=== PATIENT | male | born 1945 | race Caucasian/White ===

== ENCOUNTER 2021-03-26 11:25 | Inpatient (IN) ==
[2021-03-26] MEDS ORDERED: oxyCODONE/Acetamin 5/325 mg TAB PO ONE (11:29)
[2021-03-26] MEDS ORDERED: Ondansetron 4 mg VIAL 2 MG/ML 2 ml VIAL IV PRN (12:18)
[2021-03-26] MEDS ORDERED: Morphine 4 MG/ML VIAL (1 ml) IV PRN ×2 (12:24→12:25)
[2021-03-26] MEDS ORDERED: Thiamine 100 MG/ML 2 ml VIAL (200 mg) IM ONE (12:50)
[2021-03-26] MEDS: Aspirin EC 81 mg TAB.EC (enteric coated) PO SCH (16:09)
[2021-03-26] MEDS: Multivitamins/Minerals TAB PO SCH (16:10)
[2021-03-26] MEDS: Heparin 5000 UNITS/ML 1 mL VIAL SUBCUT SCH ×2 (16:11→21:46)
[2021-03-26] MEDS ORDERED: NS 0.9% 1000 ml BAG 1,000 ML IV ONE (17:28)
[2021-03-26] MEDS: Mometasone/Formoter 200/5 MDI INH SCH (20:32)
[2021-03-26] MEDS ORDERED: Levalbuterol 1.25MG/0.5ML NEB.SOL INH PRN (22:01)
[2021-03-27 05:47] LABS: Activated Partial Thrombo Time 16.6 seconds (26.0-38.0); INR 0.93 (0.82-1.09)
[2021-03-27] MEDS ORDERED: Lactated Ringers 1000 ml BAG 1,000 ML IV SCH (06:00)
[2021-03-27] MEDS ORDERED: Buffered Lidocaine 1% SYRIN 1 ml INTRADERM ONE (06:00)
[2021-03-27 06:53] LABS: Urine Appearance Clear; Urine Bilirubin Negative (Negative); Urine Blood Negative (Negative); Urine Color Yellow; Urine Glucose Negative (Negative); Urine Ketones Negative (Negative); Urine Nitrite Negative (Negative); Urine Protein Negative (Negative); Urine Specific Gravity 1.012 (1.002-1.030); Urine Urobilinogen Negative (Negative)
[2021-03-27] MEDS: Mometasone/Formoter 200/5 MDI INH SCH ×2 (08:41→20:05)
[2021-03-27] MEDS: Multivitamins/Minerals TAB PO SCH (08:41)
[2021-03-27] MEDS: Aspirin EC 81 mg TAB.EC (enteric coated) PO SCH (08:42)
[2021-03-27] MEDS ORDERED: Pneumococcal Vac 23-Polyvalent IM ONE (09:00)
[2021-03-27 10:56] LABS: ABS Basophils 0.1 10^3/ul (0-0.2); ABS Lymphocytes 1.4 10^3/ul (1.0-4.8); ABS Monocytes 0.9 10^3/ul (0-0.8); Eosinophil % 0.2 %; Hematocrit 35 % (42-52); Hemoglobin 11.8 g/dL (14.0-18.0); Lymphocyte % 13.4 %; Mean Corpuscular HGB Conc 34 g/dL (31-36); Mean Corpuscular Hemoglobin 34 pg (27-31); Mean Corpuscular Volume 100 fL (80-94); Mean Platelet Volume 7.3 fL (7.4-10.4); Platelet Count 224 10^3/uL (150-450); Red Blood Count 3.46 10^6 /uL (4.18-5.48); Red Cell Distribution Width 13 % (10-15); White Blood Count 10.4 10^3/uL (3.5-10.8)
[2021-03-27 11:21] LABS: Albumin 3.2 g/dL (3.2-5.2); Albumin/Globulin Ratio 1.3 (1-3); Calcium 8.7 mg/dL (8.6-10.3); EGFR African American 119.8 (>60); Globulin 2.5 g/dL (2-4); Potassium 4.7 mmol/L (3.5-5.0); Total Bilirubin 0.3 mg/dL (0.2-1.0); Total Protein 5.7 g/dL (6.4-8.9)
[2021-03-27] MEDS ORDERED: Remdesivir 100 mg Vial 200 MG in NS 0.9% 250 ml 210 ML IV ONE (17:29)
[2021-03-27 18:47] LABS: INR 1.1 (0.82-1.09)
[2021-03-27 18:48] LABS: Albumin 3.1 g/dL (3.2-5.2); Albumin/Globulin Ratio 1.3 (1-3); Calcium 8.4 mg/dL (8.6-10.3); EGFR African American 156.8 (>60); EGFR Non-African American 129.6 (>60); Globulin 2.3 g/dL (2-4); Potassium 4.7 mmol/L (3.5-5.0); Total Bilirubin 0.3 mg/dL (0.2-1.0); Total Protein 5.4 g/dL (6.4-8.9)
[2021-03-28] MEDS: Mometasone/Formoter 200/5 MDI INH SCH ×2 (07:25→20:43)
[2021-03-28] MEDS: Multivitamins/Minerals TAB PO SCH (08:53)
[2021-03-28] MEDS: Aspirin EC 81 mg TAB.EC (enteric coated) PO SCH (08:53)
[2021-03-28 09:55] LABS: ABS Basophils 0.1 10^3/ul (0-0.2); ABS Lymphocytes 0.8 10^3/ul (1.0-4.8); ABS Monocytes 0.9 10^3/ul (0-0.8); ABS Neutrophils 12.2 10^3/ul (1.5-7.7); Hematocrit 32 % (42-52); Hemoglobin 11.1 g/dL (14.0-18.0); Lymphocyte % 5.5 %; Mean Corpuscular HGB Conc 34 g/dL (31-36); Mean Corpuscular Hemoglobin 34 pg (27-31); Mean Corpuscular Volume 99 fL (80-94); Mean Platelet Volume 7.5 fL (7.4-10.4); Platelet Count 240 10^3/uL (150-450); Red Blood Count 3.27 10^6 /uL (4.18-5.48); Red Cell Distribution Width 13 % (10-15); White Blood Count 13.9 10^3/uL (3.5-10.8)
[2021-03-28 10:03] LABS: INR 1.13 (0.82-1.09)
[2021-03-28 10:13] LABS: Albumin 3.3 g/dL (3.2-5.2); Albumin/Globulin Ratio 1.3 (1-3); Calcium 8.8 mg/dL (8.6-10.3); EGFR African American 176.7 (>60); Globulin 2.6 g/dL (2-4); Potassium 4.5 mmol/L (3.5-5.0); Total Bilirubin 0.3 mg/dL (0.2-1.0); Total Protein 5.9 g/dL (6.4-8.9)
[2021-03-28] MEDS: Lidocaine PATCH 5% PATCH TRANSDERM SCH (17:30)
[2021-03-28] MEDS: Remdesivir 100 mg Vial 100 MG in NS 0.9% 250 ml 230 ML IV SCH (20:46)
[2021-03-28] MEDS ORDERED: Lidocaine Patch REMOVE PATCH PATCH OFF SCH ×2 (21:00)
[2021-03-29] MEDS: Lidocaine Patch REMOVE PATCH PATCH OFF SCH (01:33)
[2021-03-29 07:00] LABS: ABS Lymphocytes 0.9 10^3/ul (1.0-4.8); ABS Neutrophils 11.9 10^3/ul (1.5-7.7); Hematocrit 31 % (42-52); Hemoglobin 10.7 g/dL (14.0-18.0); Lymphocyte % 6.7 %; Mean Corpuscular HGB Conc 34 g/dL (31-36); Mean Corpuscular Hemoglobin 34 pg (27-31); Mean Corpuscular Volume 99 fL (80-94); Mean Platelet Volume 7.3 fL (7.4-10.4); Platelet Count 252 10^3/uL (150-450); Red Blood Count 3.16 10^6 /uL (4.18-5.48); Red Cell Distribution Width 12 % (10-15); White Blood Count 13.9 10^3/uL (3.5-10.8)
[2021-03-29 07:16] LABS: Albumin 3.1 g/dL (3.2-5.2); Albumin/Globulin Ratio 1.1 (1-3); Calcium 8.8 mg/dL (8.6-10.3); EGFR African American 211.8 (>60); EGFR Non-African American 175.1 (>60); Globulin 2.8 g/dL (2-4); Potassium 4.4 mmol/L (3.5-5.0); Total Bilirubin 0.4 mg/dL (0.2-1.0); Total Protein 5.9 g/dL (6.4-8.9)
[2021-03-29 07:18] LABS: INR 1.11 (0.82-1.09)
[2021-03-29] MEDS: Mometasone/Formoter 200/5 MDI INH SCH ×2 (08:27→20:08)
[2021-03-29] MEDS: Aspirin EC 81 mg TAB.EC (enteric coated) PO SCH (10:03)
[2021-03-29] MEDS: Multivitamins/Minerals TAB PO SCH (10:03)
[2021-03-29] MEDS: Lidocaine PATCH 5% PATCH TRANSDERM SCH (10:04)
[2021-03-29] MEDS ORDERED: HYDROmorphone 1 MG/1 ML SYRINGE IV SLOW PU ONE (11:52)
[2021-03-29] MEDS: Remdesivir 100 mg Vial 100 MG in NS 0.9% 250 ml 230 ML IV SCH (21:03)
[2021-03-30] MEDS: Lidocaine Patch REMOVE PATCH PATCH OFF SCH ×2 (03:47→23:38)
[2021-03-30 07:59] LABS: INR 1.1 (0.82-1.09)
[2021-03-30] MEDS: Mometasone/Formoter 200/5 MDI INH SCH ×2 (08:00→20:18)
[2021-03-30 08:08] LABS: Albumin/Globulin Ratio 1.2 (1-3); Calcium 8.5 mg/dL (8.6-10.3); EGFR African American 217.1 (>60); EGFR Non-African American 179.5 (>60); Globulin 2.6 g/dL (2-4); Potassium 4.5 mmol/L (3.5-5.0); Total Bilirubin 0.4 mg/dL (0.2-1.0); Total Protein 5.6 g/dL (6.4-8.9)
[2021-03-30] MEDS: Aspirin EC 81 mg TAB.EC (enteric coated) PO SCH (09:02)
[2021-03-30] MEDS: Multivitamins/Minerals TAB PO SCH (09:03)
[2021-03-30] MEDS: HYDROmorphone 1 MG/1 ML SYRINGE IV SLOW PU PRN ×4 (09:09→22:12)
[2021-03-30] MEDS: Lidocaine PATCH 5% PATCH TRANSDERM SCH (09:14)
[2021-03-30] MEDS ORDERED: Senna TAB 8.6 mg TAB PO PRN (10:56)
[2021-03-30] MEDS ORDERED: Magnesium Hydroxide LIQ 30 ML UDC PO PRN (10:56)
[2021-03-30] MEDS: Enoxaparin 40 MG/0.4 ML SYR SUBCUT SCH (17:45)
[2021-03-30] MEDS: Polyethylene Glycol 3350 17 GM PACKET PO SCH (17:45)
[2021-03-30] MEDS: Remdesivir 100 mg Vial 100 MG in NS 0.9% 250 ml 230 ML IV SCH (22:54)
[2021-03-30] MEDS: Magnesium Hydroxide LIQ 30 ML UDC PO SCH (23:38)
[2021-03-31] MEDS: HYDROmorphone 1 MG/1 ML SYRINGE IV SLOW PU PRN ×5 (01:59→22:19)
[2021-03-31 05:22] LABS: ABS Lymphocytes 0.8 10^3/ul (1.0-4.8); ABS Monocytes 0.9 10^3/ul (0-0.8); ABS Neutrophils 8.6 10^3/ul (1.5-7.7); Hematocrit 31 % (42-52); Hemoglobin 10.6 g/dL (14.0-18.0); Lymphocyte % 7.6 %; Mean Corpuscular HGB Conc 34 g/dL (31-36); Mean Corpuscular Hemoglobin 34 pg (27-31); Mean Corpuscular Volume 100 fL (80-94); Mean Platelet Volume 7.3 fL (7.4-10.4); Platelet Count 308 10^3/uL (150-450); Red Blood Count 3.12 10^6 /uL (4.18-5.48); Red Cell Distribution Width 12 % (10-15); White Blood Count 10.3 10^3/uL (3.5-10.8)
[2021-03-31 05:30] LABS: INR 1.1 (0.82-1.09)
[2021-03-31 05:41] LABS: Albumin 2.7 g/dL (3.2-5.2); Albumin/Globulin Ratio 1.2 (1-3); Calcium 8.2 mg/dL (8.6-10.3); EGFR African American 206.7 (>60); EGFR Non-African American 170.9 (>60); Globulin 2.2 g/dL (2-4); Potassium 4.5 mmol/L (3.5-5.0); Total Bilirubin 0.3 mg/dL (0.2-1.0); Total Protein 4.9 g/dL (6.4-8.9)
[2021-03-31] MEDS: Polyethylene Glycol 3350 17 GM PACKET PO SCH (09:26)
[2021-03-31] MEDS: Magnesium Hydroxide LIQ 30 ML UDC PO SCH ×2 (09:26→23:04)
[2021-03-31] MEDS: Multivitamins/Minerals TAB PO SCH (09:27)
[2021-03-31] MEDS: Aspirin EC 81 mg TAB.EC (enteric coated) PO SCH (09:27)
[2021-03-31] MEDS: Lidocaine PATCH 5% PATCH TRANSDERM SCH (09:28)
[2021-03-31] MEDS: Mometasone/Formoter 200/5 MDI INH SCH ×2 (09:38→19:27)
[2021-03-31] MEDS: Enoxaparin 40 MG/0.4 ML SYR SUBCUT SCH (16:45)
[2021-03-31] MEDS: fentaNYL PATCH 12 MCG/HR 1 PATCH TRANSDERM SCH (22:21)
[2021-03-31] MEDS: Remdesivir 100 mg Vial 100 MG in NS 0.9% 250 ml 230 ML IV SCH (22:26)
[2021-03-31] MEDS: Lidocaine Patch REMOVE PATCH PATCH OFF SCH (23:59)
[2021-04-01] MEDS: HYDROmorphone 1 MG/1 ML SYRINGE IV SLOW PU PRN ×6 (02:11→23:06)
[2021-04-01 05:45] LABS: Urine Appearance Cloudy; Urine Bilirubin Negative (Negative); Urine Blood 3+ (Negative); Urine Color Yellow; Urine Glucose Negative (Negative); Urine Ketones Negative (Negative); Urine Nitrite Negative (Negative); Urine Protein Negative (Negative); Urine Specific Gravity 1.009 (1.002-1.030); Urine Urobilinogen Negative (Negative)
[2021-04-01 05:53] LABS: Urine Bacteria Absent (Absent); Urine Red Blood Cell 2+(6-10/hpf) (Absent); Urine White Blood Cell Trace(0-5/hpf) (Absent)
[2021-04-01 06:44] LABS: INR 1.11 (0.82-1.09)
[2021-04-01 06:52] LABS: Albumin 3.1 g/dL (3.2-5.2); Albumin/Globulin Ratio 1.1 (1-3); Calcium 8.6 mg/dL (8.6-10.3); Globulin 2.8 g/dL (2-4); Potassium 4.4 mmol/L (3.5-5.0); Total Bilirubin 0.4 mg/dL (0.2-1.0); Total Protein 5.9 g/dL (6.4-8.9)
[2021-04-01] MEDS: Mometasone/Formoter 200/5 MDI INH SCH ×2 (07:42→20:39)
[2021-04-01 07:52] LABS: ABS Lymphocytes 1.1 10^3/ul (1.0-4.8); ABS Monocytes 1.3 10^3/ul (0-0.8); ABS Neutrophils 9.7 10^3/ul (1.5-7.7); Hematocrit 34 % (42-52); Hemoglobin 11.6 g/dL (14.0-18.0); Lymphocyte % 8.8 %; Mean Corpuscular HGB Conc 34 g/dL (31-36); Mean Corpuscular Hemoglobin 34 pg (27-31); Mean Corpuscular Volume 99 fL (80-94); Mean Platelet Volume 7.8 fL (7.4-10.4); Platelet Count 351 10^3/uL (150-450); Red Blood Count 3.43 10^6 /uL (4.18-5.48); Red Cell Distribution Width 13 % (10-15)
[2021-04-01] MEDS: Aspirin EC 81 mg TAB.EC (enteric coated) PO SCH (08:32)
[2021-04-01] MEDS: Multivitamins/Minerals TAB PO SCH (08:32)
[2021-04-01] MEDS: fentaNYL Patch Check Q Shift NOTE FOLLOW UP SCH ×2 (08:33→19:29)
[2021-04-01] MEDS: Lidocaine PATCH 5% PATCH TRANSDERM SCH (08:34)
[2021-04-01] MEDS: Magnesium Hydroxide LIQ 30 ML UDC PO SCH ×3 (08:34→20:57)
[2021-04-01] MEDS: Polyethylene Glycol 3350 17 GM PACKET PO SCH (08:34)
[2021-04-01] MEDS: Enoxaparin 40 MG/0.4 ML SYR SUBCUT SCH (19:05)
[2021-04-01] MEDS ORDERED: Magnesium CITRATE LIQ 300 ML BTL PO ONE (19:17)
[2021-04-01] MEDS: Senna TAB 8.6 mg TAB PO SCH (20:56)
[2021-04-01] MEDS: Lidocaine Patch REMOVE PATCH PATCH OFF SCH (20:59)
[2021-04-01] MEDS: Remdesivir 100 mg Vial 100 MG in NS 0.9% 250 ml 230 ML IV SCH (20:59)
[2021-04-02] MEDS: HYDROmorphone 1 MG/1 ML SYRINGE IV SLOW PU PRN ×6 (03:08→23:50)
[2021-04-02] MEDS: fentaNYL Patch Check Q Shift NOTE FOLLOW UP SCH ×2 (07:27→19:36)
[2021-04-02 07:46] LABS: ABS Basophils 0.1 10^3/ul (0-0.2); ABS Lymphocytes 1.6 10^3/ul (1.0-4.8); ABS Monocytes 1.4 10^3/ul (0-0.8); ABS Neutrophils 14.7 10^3/ul (1.5-7.7); Hematocrit 33 % (42-52); Hemoglobin 11.2 g/dL (14.0-18.0); Lymphocyte % 8.9 %; Mean Corpuscular HGB Conc 34 g/dL (31-36); Mean Corpuscular Hemoglobin 34 pg (27-31); Mean Corpuscular Volume 100 fL (80-94); Mean Platelet Volume 7.5 fL (7.4-10.4); Platelet Count 362 10^3/uL (150-450); Red Blood Count 3.31 10^6 /uL (4.18-5.48); Red Cell Distribution Width 13 % (10-15); White Blood Count 17.8 10^3/uL (3.5-10.8)
[2021-04-02] MEDS: Mometasone/Formoter 200/5 MDI INH SCH ×2 (07:52→19:32)
[2021-04-02 08:05] LABS: Albumin 2.9 g/dL (3.2-5.2); Albumin/Globulin Ratio 1.2 (1-3); Calcium 8.2 mg/dL (8.6-10.3); EGFR African American 192.8 (>60); EGFR Non-African American 159.3 (>60); Globulin 2.4 g/dL (2-4); Potassium 4.6 mmol/L (3.5-5.0); Total Bilirubin 0.5 mg/dL (0.2-1.0); Total Protein 5.3 g/dL (6.4-8.9)
[2021-04-02] MEDS: Magnesium Hydroxide LIQ 30 ML UDC PO SCH ×2 (09:01→21:56)
[2021-04-02] MEDS: Al Hydrox/Mg Hydrox/Simet LIQ 30 ML UDC PO PRN ×2 (09:01→15:56)
[2021-04-02] MEDS: Lidocaine PATCH 5% PATCH TRANSDERM SCH (09:01)
[2021-04-02] MEDS: Multivitamins/Minerals TAB PO SCH (09:03)
[2021-04-02] MEDS: Aspirin EC 81 mg TAB.EC (enteric coated) PO SCH (09:03)
[2021-04-02] MEDS: Polyethylene Glycol 3350 17 GM PACKET PO SCH (09:04)
[2021-04-02] MEDS ORDERED: Albuterol HFA INHALER 8 gm MDI INH PRN (12:12)
[2021-04-02] MEDS: Enoxaparin 40 MG/0.4 ML SYR SUBCUT SCH (15:56)
[2021-04-02] MEDS: Senna TAB 8.6 mg TAB PO SCH (21:56)
[2021-04-02] MEDS: Lidocaine Patch REMOVE PATCH PATCH OFF SCH (21:57)
[2021-04-03] MEDS: HYDROmorphone 1 MG/1 ML SYRINGE IV SLOW PU PRN ×5 (04:04→21:45)
[2021-04-03] MEDS: fentaNYL Patch Check Q Shift NOTE FOLLOW UP SCH ×2 (06:56→19:18)
[2021-04-03] MEDS: Mometasone/Formoter 200/5 MDI INH SCH ×2 (08:07→19:26)
[2021-04-03] MEDS: Al Hydrox/Mg Hydrox/Simet LIQ 30 ML UDC PO PRN (08:35)
[2021-04-03] MEDS: Magnesium Hydroxide LIQ 30 ML UDC PO SCH ×2 (08:35→21:43)
[2021-04-03] MEDS: Polyethylene Glycol 3350 17 GM PACKET PO SCH (08:36)
[2021-04-03] MEDS: Lidocaine PATCH 5% PATCH TRANSDERM SCH (08:36)
[2021-04-03] MEDS: Multivitamins/Minerals TAB PO SCH (08:37)
[2021-04-03] MEDS: Aspirin EC 81 mg TAB.EC (enteric coated) PO SCH (08:37)
[2021-04-03 09:42] LABS: ABS Lymphocytes 1.4 10^3/ul (1.0-4.8); ABS Monocytes 0.8 10^3/ul (0-0.8); ABS Neutrophils 13.1 10^3/ul (1.5-7.7); Hematocrit 36 % (42-52); Hemoglobin 11.9 g/dL (14.0-18.0); Lymphocyte % 9.1 %; Mean Corpuscular HGB Conc 33 g/dL (31-36); Mean Corpuscular Hemoglobin 33 pg (27-31); Mean Corpuscular Volume 100 fL (80-94); Mean Platelet Volume 7.6 fL (7.4-10.4); Nucleated Red Blood Cells % 0.1; Platelet Count 384 10^3/uL (150-450); Red Blood Count 3.59 10^6 /uL (4.18-5.48); Red Cell Distribution Width 12 % (10-15); White Blood Count 15.4 10^3/uL (3.5-10.8)
[2021-04-03 10:01] LABS: Albumin 3.1 g/dL (3.2-5.2); Calcium 8.4 mg/dL (8.6-10.3); Potassium 4.1 mmol/L (3.5-5.0); Total Bilirubin 0.5 mg/dL (0.2-1.0)
[2021-04-03 10:07] LABS: Albumin/Globulin Ratio 1.2 (1-3); EGFR African American 184.4 (>60); EGFR Non-African American 152.4 (>60); Globulin 2.5 g/dL (2-4); Total Protein 5.6 g/dL (6.4-8.9)
[2021-04-03] MEDS: Enoxaparin 40 MG/0.4 ML SYR SUBCUT SCH (17:17)
[2021-04-03 19:06] LABS: Magnesium 2.5 mg/dL (1.9-2.7)
[2021-04-03] MEDS: fentaNYL PATCH 12 MCG/HR 1 PATCH TRANSDERM SCH (19:19)
[2021-04-03] MEDS: Lactulose 30 ml UDC PO SCH (21:42)
[2021-04-03] MEDS: Lidocaine Patch REMOVE PATCH PATCH OFF SCH (21:47)
[2021-04-03] MEDS: Senna TAB 8.6 mg TAB PO SCH (23:41)
[2021-04-04] MEDS: HYDROmorphone 1 MG/1 ML SYRINGE IV SLOW PU PRN ×5 (02:05→21:32)
[2021-04-04] MEDS: Mometasone/Formoter 200/5 MDI INH SCH ×2 (07:14→20:17)
[2021-04-04] MEDS: fentaNYL Patch Check Q Shift NOTE FOLLOW UP SCH ×2 (07:33→19:27)
[2021-04-04] MEDS: Multivitamins/Minerals TAB PO SCH (07:41)
[2021-04-04] MEDS: Aspirin EC 81 mg TAB.EC (enteric coated) PO SCH (07:41)
[2021-04-04] MEDS: Lidocaine PATCH 5% PATCH TRANSDERM SCH (07:42)
[2021-04-04] MEDS: Magnesium Hydroxide LIQ 30 ML UDC PO SCH (07:42)
[2021-04-04] MEDS: Lactulose 30 ml UDC PO SCH (07:42)
[2021-04-04] MEDS: Polyethylene Glycol 3350 17 GM PACKET PO SCH (07:42)
[2021-04-04 08:59] LABS: Hematocrit 35 % (42-52); Hemoglobin 11.8 g/dL (14.0-18.0); Mean Corpuscular HGB Conc 34 g/dL (31-36); Mean Corpuscular Hemoglobin 34 pg (27-31); Mean Corpuscular Volume 99 fL (80-94); Mean Platelet Volume 7.4 fL (7.4-10.4); Platelet Count 446 10^3/uL (150-450); Red Blood Count 3.47 10^6 /uL (4.18-5.48); Red Cell Distribution Width 13 % (10-15); White Blood Count 16.3 10^3/uL (3.5-10.8)
[2021-04-04 09:02] LABS: ABS Lymphocytes 1.3 10^3/ul (1.0-4.8); ABS Monocytes 1.7 10^3/ul (0-0.8); ABS Neutrophils 13.3 10^3/ul (1.5-7.7); Lymphocyte % 7.8 %
[2021-04-04 09:15] LABS: Albumin/Globulin Ratio 1.2 (1-3); Calcium 8.5 mg/dL (8.6-10.3); EGFR African American 180.5 (>60); EGFR Non-African American 149.1 (>60); Globulin 2.5 g/dL (2-4); Potassium 4.2 mmol/L (3.5-5.0); Total Bilirubin 0.5 mg/dL (0.2-1.0); Total Protein 5.5 g/dL (6.4-8.9)
[2021-04-04] MEDS ORDERED: Morphine 10 MG/ML VIAL (1 ml) IM ONE (11:46)
[2021-04-04] MEDS: Enoxaparin 40 MG/0.4 ML SYR SUBCUT SCH (16:42)
[2021-04-04] MEDS: Cefepime 2 GM in Dextrose 2 GM/50 ML BAG IV SCH (17:10)
[2021-04-04] MEDS: Senna TAB 8.6 mg TAB PO SCH (21:32)
[2021-04-04] MEDS: Lidocaine Patch REMOVE PATCH PATCH OFF SCH (21:51)
[2021-04-05] MEDS: Cefepime 2 GM in Dextrose 2 GM/50 ML BAG IV SCH ×2 (04:08→16:17)
[2021-04-05 06:24] LABS: Hematocrit 32 % (42-52); Hemoglobin 10.7 g/dL (14.0-18.0); Mean Corpuscular HGB Conc 34 g/dL (31-36); Mean Corpuscular Hemoglobin 34 pg (27-31); Mean Corpuscular Volume 99 fL (80-94); Mean Platelet Volume 7.2 fL (7.4-10.4); Platelet Count 397 10^3/uL (150-450); Red Blood Count 3.17 10^6 /uL (4.18-5.48); Red Cell Distribution Width 13 % (10-15); White Blood Count 17.4 10^3/uL (3.5-10.8)
[2021-04-05 06:43] LABS: Albumin 2.8 g/dL (3.2-5.2); Albumin/Globulin Ratio 1.3 (1-3); Calcium 8.2 mg/dL (8.6-10.3); EGFR African American 169.5 (>60); EGFR Non-African American 140.1 (>60); Globulin 2.2 g/dL (2-4); Potassium 4.5 mmol/L (3.5-5.0); Total Bilirubin 0.5 mg/dL (0.2-1.0)
[2021-04-05 06:44] LABS: ABS Lymphocytes 1.5 10^3/ul (1.0-4.8); ABS Monocytes 1.7 10^3/ul (0-0.8); ABS Neutrophils 14.1 10^3/ul (1.5-7.7); Lymphocyte % 8.9 %
[2021-04-05] MEDS: fentaNYL Patch Check Q Shift NOTE FOLLOW UP SCH ×2 (07:18→18:09)
[2021-04-05] MEDS: HYDROmorphone 1 MG/1 ML SYRINGE IV SLOW PU PRN ×4 (07:23→22:05)
[2021-04-05] MEDS: Aspirin EC 81 mg TAB.EC (enteric coated) PO SCH (08:07)
[2021-04-05] MEDS: Multivitamins/Minerals TAB PO SCH (08:07)
[2021-04-05] MEDS: Lidocaine PATCH 5% PATCH TRANSDERM SCH (08:08)
[2021-04-05] MEDS: Polyethylene Glycol 3350 17 GM PACKET PO SCH (08:08)
[2021-04-05] MEDS: Mometasone/Formoter 200/5 MDI INH SCH ×2 (10:04→21:20)
[2021-04-05] MEDS: Enoxaparin 40 MG/0.4 ML SYR SUBCUT SCH (16:18)
[2021-04-05] MEDS: Senna TAB 8.6 mg TAB PO SCH (20:27)
[2021-04-05] MEDS: Amoxicillin/Clavul 875/125 TAB (Augmentin 875 tab) PO SCH (20:29)
[2021-04-05] MEDS: Lidocaine Patch REMOVE PATCH PATCH OFF SCH (20:29)
[2021-04-06] MEDS: HYDROmorphone 1 MG/1 ML SYRINGE IV SLOW PU PRN ×4 (02:23→14:42)
[2021-04-06] MEDS ORDERED: cefTRIAXone 1 gm/50 mL NS BAG 1 GM/50 ML BAG IVPB SCH (06:00)
[2021-04-06] MEDS: fentaNYL Patch Check Q Shift NOTE FOLLOW UP SCH ×2 (07:26→18:43)
[2021-04-06] MEDS: Multivitamins/Minerals TAB PO SCH (07:35)
[2021-04-06] MEDS: Aspirin EC 81 mg TAB.EC (enteric coated) PO SCH (07:36)
[2021-04-06] MEDS: Polyethylene Glycol 3350 17 GM PACKET PO SCH (07:37)
[2021-04-06] MEDS: Lidocaine PATCH 5% PATCH TRANSDERM SCH (07:37)
[2021-04-06] MEDS: Amoxicillin/Clavul 875/125 TAB (Augmentin 875 tab) PO SCH ×2 (07:43→20:21)
[2021-04-06] MEDS: Mometasone/Formoter 200/5 MDI INH SCH ×2 (07:48→19:36)
[2021-04-06] MEDS: Enoxaparin 40 MG/0.4 ML SYR SUBCUT SCH (15:36)
[2021-04-06] MEDS: fentaNYL PATCH 12 MCG/HR 1 PATCH TRANSDERM SCH (20:11)
[2021-04-06] MEDS: Senna TAB 8.6 mg TAB PO SCH (20:21)
[2021-04-06] MEDS: Lidocaine Patch REMOVE PATCH PATCH OFF SCH (20:22)
[2021-04-07 06:31] LABS: Hematocrit 35 % (42-52); Mean Corpuscular HGB Conc 34 g/dL (31-36); Mean Corpuscular Hemoglobin 34 pg (27-31); Mean Corpuscular Volume 99 fL (80-94); Platelet Count 389 10^3/uL (150-450); Red Blood Count 3.57 10^6 /uL (4.18-5.48); Red Cell Distribution Width 13 % (10-15); White Blood Count 20.1 10^3/uL (3.5-10.8)
[2021-04-07 06:43] LABS: Calcium 8.3 mg/dL (8.6-10.3); Potassium 4.6 mmol/L (3.5-5.0)
[2021-04-07 06:48] LABS: EGFR African American 176.7 (>60)
[2021-04-07] MEDS: fentaNYL Patch Check Q Shift NOTE FOLLOW UP SCH ×2 (07:00→19:07)
[2021-04-07 07:22] LABS: ABS Basophils 0.1 10^3/ul (0-0.2); ABS Eosinophils 0.1 10^3/ul (0-0.6); ABS Lymphocytes 2.8 10^3/ul (1.0-4.8); ABS Monocytes 1.5 10^3/ul (0-0.8); ABS Neutrophils 15.7 10^3/ul (1.5-7.7); Eosinophil % 0.4 %
[2021-04-07] MEDS: Mometasone/Formoter 200/5 MDI INH SCH ×2 (07:43→19:45)
[2021-04-07] MEDS: Polyethylene Glycol 3350 17 GM PACKET PO SCH (08:46)
[2021-04-07] MEDS: Lidocaine PATCH 5% PATCH TRANSDERM SCH (08:47)
[2021-04-07] MEDS: Aspirin EC 81 mg TAB.EC (enteric coated) PO SCH (08:48)
[2021-04-07] MEDS: Amoxicillin/Clavul 875/125 TAB (Augmentin 875 tab) PO SCH ×2 (08:48→20:51)
[2021-04-07] MEDS: Multivitamins/Minerals TAB PO SCH (08:49)
[2021-04-07] MEDS: Albuterol/Ipratropium NEB.SOL (2.5/0.5 MG) 3 ML NEB.SOLN INH SCH ×2 (11:57→15:04)
[2021-04-07 13:08] LABS: C Reactive Protein 11.7 mg/L (<8.01)
[2021-04-07] MEDS: Magnesium Hydroxide LIQ 30 ML UDC PO PRN (16:36)
[2021-04-07] MEDS: Enoxaparin 40 MG/0.4 ML SYR SUBCUT SCH (16:37)
[2021-04-07] MEDS ORDERED: Albuterol/Ipratropium NEB.SOL (2.5/0.5 MG) 3 ML NEB.SOLN INH PRN (18:42)
[2021-04-07] MEDS: Senna TAB 8.6 mg TAB PO SCH (20:51)
[2021-04-07] MEDS: Lidocaine Patch REMOVE PATCH PATCH OFF SCH (20:53)
[2021-04-08 05:23] LABS: Hematocrit 34 % (42-52); Hemoglobin 11.2 g/dL (14.0-18.0); Mean Corpuscular HGB Conc 33 g/dL (31-36); Mean Corpuscular Hemoglobin 33 pg (27-31); Mean Corpuscular Volume 100 fL (80-94); Platelet Count 377 10^3/uL (150-450); Red Blood Count 3.42 10^6 /uL (4.18-5.48); Red Cell Distribution Width 13 % (10-15); White Blood Count 18.5 10^3/uL (3.5-10.8)
[2021-04-08] MEDS: fentaNYL Patch Check Q Shift NOTE FOLLOW UP SCH ×2 (07:03→19:14)
[2021-04-08 07:34] LABS: ABS Eosinophils 0.1 10^3/ul (0-0.6); ABS Lymphocytes 2.2 10^3/ul (1.0-4.8); ABS Monocytes 1.2 10^3/ul (0-0.8); ABS Neutrophils 14.9 10^3/ul (1.5-7.7); Eosinophil % 0.5 %; Lymphocyte % 11.9 %
[2021-04-08] MEDS: Aspirin EC 81 mg TAB.EC (enteric coated) PO SCH (07:59)
[2021-04-08] MEDS: Multivitamins/Minerals TAB PO SCH (07:59)
[2021-04-08] MEDS: Lidocaine PATCH 5% PATCH TRANSDERM SCH (07:59)
[2021-04-08] MEDS: Amoxicillin/Clavul 875/125 TAB (Augmentin 875 tab) PO SCH ×2 (08:00→19:35)
[2021-04-08] MEDS: Polyethylene Glycol 3350 17 GM PACKET PO SCH (08:01)
[2021-04-08] MEDS: Mometasone/Formoter 200/5 MDI INH SCH ×2 (09:52→19:40)
[2021-04-08] MEDS: Enoxaparin 40 MG/0.4 ML SYR SUBCUT SCH (16:34)
[2021-04-08] MEDS: Senna TAB 8.6 mg TAB PO SCH (19:35)
[2021-04-08] MEDS: Lidocaine Patch REMOVE PATCH PATCH OFF SCH (19:39)
[2021-04-08 20:17] LABS: HDL Cholesterol 63.9 mg/dL
[2021-04-09] MEDS: fentaNYL Patch Check Q Shift NOTE FOLLOW UP SCH ×2 (07:17→19:45)
[2021-04-09] MEDS: Multivitamins/Minerals TAB PO SCH (09:10)
[2021-04-09] MEDS: Lidocaine PATCH 5% PATCH TRANSDERM SCH ×2 (09:10→15:53)
[2021-04-09] MEDS: Amoxicillin/Clavul 875/125 TAB (Augmentin 875 tab) PO SCH ×2 (09:10→21:03)
[2021-04-09] MEDS: Polyethylene Glycol 3350 17 GM PACKET PO SCH (09:10)
[2021-04-09] MEDS: Aspirin EC 81 mg TAB.EC (enteric coated) PO SCH (09:11)
[2021-04-09] MEDS: Mometasone/Formoter 200/5 MDI INH SCH ×2 (09:23→19:26)
[2021-04-09] MEDS ORDERED: HYDROmorphone 1 MG/1 ML SYRINGE IV SLOW PU ONE (10:29)
[2021-04-09] MEDS ORDERED: Perflutren Lipid Microsphere 3 ML VIAL ONE (11:06)
[2021-04-09] MEDS: Al Hydrox/Mg Hydrox/Simet LIQ 30 ML UDC PO PRN (11:49)
[2021-04-09] MEDS: Magnesium Hydroxide LIQ 30 ML UDC PO PRN (11:49)
[2021-04-09] MEDS: Lactulose 30 ml UDC PO PRN (11:49)
[2021-04-09 12:34] LABS: TSH Ultra Thyroid Stim Horm 0.98 mcIU/mL (0.34-5.60)
[2021-04-09 12:45] LABS: Folate > 20.00 ng/mL (5.90-24.80)
[2021-04-09 12:46] LABS: Vitamin B12 1139 pg/mL (180-914)
[2021-04-09] MEDS: Enoxaparin 40 MG/0.4 ML SYR SUBCUT SCH (15:53)
[2021-04-09] MEDS: fentaNYL PATCH 12 MCG/HR 1 PATCH TRANSDERM SCH (19:42)
[2021-04-09] MEDS: Senna TAB 8.6 mg TAB PO SCH (21:03)
[2021-04-09] MEDS: Lidocaine Patch REMOVE PATCH PATCH OFF SCH ×2 (21:05)
[2021-04-10 05:19] LABS: ABS Basophils 0.1 10^3/ul (0-0.2); ABS Eosinophils 0.1 10^3/ul (0-0.6); ABS Lymphocytes 1.4 10^3/ul (1.0-4.8); ABS Monocytes 1.2 10^3/ul (0-0.8); ABS Neutrophils 13.5 10^3/ul (1.5-7.7); Eosinophil % 0.5 %; Hematocrit 31 % (42-52); Hemoglobin 10.3 g/dL (14.0-18.0); Lymphocyte % 8.8 %; Mean Corpuscular HGB Conc 34 g/dL (31-36); Mean Corpuscular Hemoglobin 33 pg (27-31); Mean Corpuscular Volume 99 fL (80-94); Mean Platelet Volume 7.2 fL (7.4-10.4); Platelet Count 349 10^3/uL (150-450); Red Blood Count 3.11 10^6 /uL (4.18-5.48); Red Cell Distribution Width 13 % (10-15); White Blood Count 16.3 10^3/uL (3.5-10.8)
[2021-04-10 05:39] LABS: Calcium 8.6 mg/dL (8.6-10.3); EGFR African American 180.5 (>60); EGFR Non-African American 149.1 (>60); Potassium 4.2 mmol/L (3.5-5.0)
[2021-04-10] MEDS: Mometasone/Formoter 200/5 MDI INH SCH ×2 (07:10→19:45)
[2021-04-10] MEDS: fentaNYL Patch Check Q Shift NOTE FOLLOW UP SCH ×2 (07:14→19:18)
[2021-04-10] MEDS: Multivitamins/Minerals TAB PO SCH (08:29)
[2021-04-10] MEDS: Polyethylene Glycol 3350 17 GM PACKET PO SCH (08:30)
[2021-04-10] MEDS: Aspirin EC 81 mg TAB.EC (enteric coated) PO SCH (08:30)
[2021-04-10] MEDS: Amoxicillin/Clavul 875/125 TAB (Augmentin 875 tab) PO SCH ×2 (08:30→20:55)
[2021-04-10] MEDS: Lidocaine PATCH 5% PATCH TRANSDERM SCH ×2 (08:30→08:31)
[2021-04-10] MEDS ORDERED: Lidocaine 2% JELLY 6 ML TOPICAL ONE (12:00)
[2021-04-10] MEDS: Enoxaparin 40 MG/0.4 ML SYR SUBCUT SCH (17:12)
[2021-04-10] MEDS ORDERED: Petrolatum 5 gm PACKET TOPICAL ONE (20:33)
[2021-04-10] MEDS ORDERED: Nicotine GUM 2MG FRUIT FLAVOR PO PRN (20:46)
[2021-04-10] MEDS: Senna TAB 8.6 mg TAB PO SCH (20:55)
[2021-04-10] MEDS: Lidocaine Patch REMOVE PATCH PATCH OFF SCH ×2 (20:57)
[2021-04-10] MEDS: fentaNYL PATCH 25 MCG/HR 1 PATCH TRANSDERM SCH (21:00)
[2021-04-11 07:02] LABS: ABS Basophils 0.1 10^3/ul (0-0.2); ABS Eosinophils 0.1 10^3/ul (0-0.6); ABS Lymphocytes 1.5 10^3/ul (1.0-4.8); ABS Monocytes 1.3 10^3/ul (0-0.8); ABS Neutrophils 11.7 10^3/ul (1.5-7.7); Eosinophil % 0.6 %; Hematocrit 29 % (42-52); Hemoglobin 9.9 g/dL (14.0-18.0); Lymphocyte % 10.2 %; Mean Corpuscular HGB Conc 34 g/dL (31-36); Mean Corpuscular Hemoglobin 33 pg (27-31); Mean Corpuscular Volume 98 fL (80-94); Mean Platelet Volume 7.2 fL (7.4-10.4); Platelet Count 330 10^3/uL (150-450); Red Blood Count 2.97 10^6 /uL (4.18-5.48); Red Cell Distribution Width 12 % (10-15); White Blood Count 14.6 10^3/uL (3.5-10.8)
[2021-04-11] MEDS: fentaNYL Patch Check Q Shift NOTE FOLLOW UP SCH ×4 (07:18→19:32)
[2021-04-11 07:20] LABS: Calcium 8.2 mg/dL (8.6-10.3); EGFR African American 206.7 (>60); EGFR Non-African American 170.9 (>60); Potassium 3.9 mmol/L (3.5-5.0)
[2021-04-11] MEDS: Mometasone/Formoter 200/5 MDI INH SCH ×2 (07:59→19:21)
[2021-04-11] MEDS: Lidocaine PATCH 5% PATCH TRANSDERM SCH ×2 (08:15→08:17)
[2021-04-11] MEDS: Polyethylene Glycol 3350 17 GM PACKET PO SCH (08:15)
[2021-04-11] MEDS: Multivitamins/Minerals TAB PO SCH (08:19)
[2021-04-11] MEDS: Aspirin EC 81 mg TAB.EC (enteric coated) PO SCH (08:21)
[2021-04-11] MEDS ORDERED: Iohexol 350 (CONTRAST) 500 ML MDV IV ONE (16:50)
[2021-04-11] MEDS: Enoxaparin 40 MG/0.4 ML SYR SUBCUT SCH (17:31)
[2021-04-11] MEDS: Senna TAB 8.6 mg TAB PO SCH (22:24)
[2021-04-11] MEDS: Lidocaine Patch REMOVE PATCH PATCH OFF SCH ×2 (22:24)
[2021-04-11] MEDS: Lactulose 30 ml UDC PO PRN (22:24)
[2021-04-12 06:30] LABS: ABS Basophils 0.1 10^3/ul (0-0.2); ABS Eosinophils 0.1 10^3/ul (0-0.6); ABS Lymphocytes 1.4 10^3/ul (1.0-4.8); ABS Neutrophils 9.6 10^3/ul (1.5-7.7); Eosinophil % 0.5 %; Hematocrit 28 % (42-52); Hemoglobin 9.7 g/dL (14.0-18.0); Lymphocyte % 11.3 %; Mean Corpuscular HGB Conc 34 g/dL (31-36); Mean Corpuscular Hemoglobin 34 pg (27-31); Mean Corpuscular Volume 98 fL (80-94); Mean Platelet Volume 7.3 fL (7.4-10.4); Platelet Count 292 10^3/uL (150-450); Red Blood Count 2.88 10^6 /uL (4.18-5.48); Red Cell Distribution Width 12 % (10-15); White Blood Count 12.1 10^3/uL (3.5-10.8)
[2021-04-12 06:48] LABS: Potassium 3.9 mmol/L (3.5-5.0)
[2021-04-12 06:53] LABS: EGFR African American 201.9 (>60); EGFR Non-African American 166.8 (>60)
[2021-04-12] MEDS: Mometasone/Formoter 200/5 MDI INH SCH ×2 (07:54→19:50)
[2021-04-12] MEDS: fentaNYL Patch Check Q Shift NOTE FOLLOW UP SCH ×4 (08:07→19:38)
[2021-04-12] MEDS: Lidocaine PATCH 5% PATCH TRANSDERM SCH ×2 (09:27→10:06)
[2021-04-12] MEDS: Aspirin EC 81 mg TAB.EC (enteric coated) PO SCH (09:27)
[2021-04-12] MEDS: Multivitamins/Minerals TAB PO SCH (09:27)
[2021-04-12] MEDS: Magnesium Hydroxide LIQ 30 ML UDC PO PRN (09:35)
[2021-04-12] MEDS: Polyethylene Glycol 3350 17 GM PACKET PO SCH (10:03)
[2021-04-12] MEDS: Enoxaparin 40 MG/0.4 ML SYR SUBCUT SCH (14:47)
[2021-04-12] MEDS: Senna TAB 8.6 mg TAB PO SCH (20:47)
[2021-04-12] MEDS: Lidocaine Patch REMOVE PATCH PATCH OFF SCH ×2 (20:50→20:51)
[2021-04-13] MEDS: fentaNYL Patch Check Q Shift NOTE FOLLOW UP SCH ×3 (07:32→19:04)
[2021-04-13] MEDS: Mometasone/Formoter 200/5 MDI INH SCH ×2 (07:38→19:44)
[2021-04-13] MEDS: Polyethylene Glycol 3350 17 GM PACKET PO SCH (08:33)
[2021-04-13] MEDS: Lidocaine PATCH 5% PATCH TRANSDERM SCH ×2 (08:33→08:34)
[2021-04-13] MEDS: Multivitamins/Minerals TAB PO SCH (08:34)
[2021-04-13] MEDS: Aspirin EC 81 mg TAB.EC (enteric coated) PO SCH (08:34)
[2021-04-13 09:12] LABS: ABS Basophils 0.1 10^3/ul (0-0.2); ABS Eosinophils 0.1 10^3/ul (0-0.6); ABS Lymphocytes 1.7 10^3/ul (1.0-4.8); ABS Monocytes 0.7 10^3/ul (0-0.8); ABS Neutrophils 12.9 10^3/ul (1.5-7.7); Eosinophil % 0.9 %; Hematocrit 30 % (42-52); Lymphocyte % 10.8 %; Mean Corpuscular HGB Conc 34 g/dL (31-36); Mean Corpuscular Hemoglobin 33 pg (27-31); Mean Corpuscular Volume 99 fL (80-94); Mean Platelet Volume 7.3 fL (7.4-10.4); Platelet Count 328 10^3/uL (150-450); Red Blood Count 3.02 10^6 /uL (4.18-5.48); Red Cell Distribution Width 13 % (10-15); White Blood Count 15.5 10^3/uL (3.5-10.8)
[2021-04-13] MEDS ORDERED: NS 0.9% 1000 ml BAG 1,000 ML IV SCH (11:45)
[2021-04-13] MEDS: Enoxaparin 40 MG/0.4 ML SYR SUBCUT SCH (14:03)
[2021-04-13] MEDS: Senna TAB 8.6 mg TAB PO SCH (21:16)
[2021-04-13] MEDS: fentaNYL PATCH 25 MCG/HR 1 PATCH TRANSDERM SCH (22:42)
[2021-04-13] MEDS: Lidocaine Patch REMOVE PATCH PATCH OFF SCH ×2 (22:43)
[2021-04-14] MEDS: Magnesium Hydroxide LIQ 30 ML UDC PO PRN (04:56)
[2021-04-14] MEDS: Mometasone/Formoter 200/5 MDI INH SCH ×2 (07:39→19:51)
[2021-04-14] MEDS: fentaNYL Patch Check Q Shift NOTE FOLLOW UP SCH ×2 (07:50→17:40)
[2021-04-14] MEDS: Multivitamins/Minerals TAB PO SCH (08:28)
[2021-04-14] MEDS: Aspirin EC 81 mg TAB.EC (enteric coated) PO SCH (08:28)
[2021-04-14] MEDS: Polyethylene Glycol 3350 17 GM PACKET PO SCH (08:29)
[2021-04-14] MEDS: Lidocaine PATCH 5% PATCH TRANSDERM SCH ×2 (08:29)
[2021-04-14] MEDS: Enoxaparin 40 MG/0.4 ML SYR SUBCUT SCH (16:42)
[2021-04-14] MEDS: Senna TAB 8.6 mg TAB PO SCH (19:53)
[2021-04-14] MEDS: Lidocaine Patch REMOVE PATCH PATCH OFF SCH ×2 (20:29)
[2021-04-14] MEDS ORDERED: Morphine 2 MG/ML SYRINGE IV ONE (23:29)
[2021-04-15 07:01] LABS: ABS Basophils 0.1 10^3/ul (0-0.2); ABS Eosinophils 0.2 10^3/ul (0-0.6); ABS Lymphocytes 1.6 10^3/ul (1.0-4.8); ABS Monocytes 0.7 10^3/ul (0-0.8); ABS Neutrophils 9.3 10^3/ul (1.5-7.7); Eosinophil % 1.3 %; Hematocrit 30 % (42-52); Hemoglobin 10.4 g/dL (14.0-18.0); Lymphocyte % 13.3 %; Mean Corpuscular HGB Conc 34 g/dL (31-36); Mean Corpuscular Hemoglobin 34 pg (27-31); Mean Corpuscular Volume 98 fL (80-94); Mean Platelet Volume 7.3 fL (7.4-10.4); Platelet Count 303 10^3/uL (150-450); Red Blood Count 3.07 10^6 /uL (4.18-5.48); Red Cell Distribution Width 12 % (10-15); White Blood Count 11.7 10^3/uL (3.5-10.8)
[2021-04-15] MEDS: Mometasone/Formoter 200/5 MDI INH SCH ×2 (07:08→19:25)
[2021-04-15] MEDS: Polyethylene Glycol 3350 17 GM PACKET PO SCH (08:09)
[2021-04-15] MEDS: Aspirin EC 81 mg TAB.EC (enteric coated) PO SCH (08:12)
[2021-04-15] MEDS: Lidocaine PATCH 5% PATCH TRANSDERM SCH ×2 (08:12)
[2021-04-15] MEDS: Multivitamins/Minerals TAB PO SCH (08:12)
[2021-04-15] MEDS: fentaNYL Patch Check Q Shift NOTE FOLLOW UP SCH ×2 (08:16→18:17)
[2021-04-15] MEDS: Enoxaparin 40 MG/0.4 ML SYR SUBCUT SCH (14:57)
[2021-04-15] MEDS: Senna TAB 8.6 mg TAB PO SCH (22:40)
[2021-04-16] MEDS: Lidocaine Patch REMOVE PATCH PATCH OFF SCH ×2 (02:03→02:04)
[2021-04-16 05:54] LABS: ABS Basophils 0.1 10^3/ul (0-0.2); ABS Eosinophils 0.2 10^3/ul (0-0.6); ABS Lymphocytes 1.3 10^3/ul (1.0-4.8); ABS Monocytes 0.8 10^3/ul (0-0.8); Eosinophil % 1.4 %; Hematocrit 29 % (42-52); Hemoglobin 9.6 g/dL (14.0-18.0); Lymphocyte % 9.8 %; Mean Corpuscular HGB Conc 34 g/dL (31-36); Mean Corpuscular Hemoglobin 33 pg (27-31); Mean Corpuscular Volume 98 fL (80-94); Platelet Count 318 10^3/uL (150-450); Red Blood Count 2.91 10^6 /uL (4.18-5.48); Red Cell Distribution Width 12 % (10-15); White Blood Count 13.3 10^3/uL (3.5-10.8)
[2021-04-16] MEDS: fentaNYL Patch Check Q Shift NOTE FOLLOW UP SCH (07:28)
[2021-04-16] MEDS: Polyethylene Glycol 3350 17 GM PACKET PO SCH (08:02)
[2021-04-16] MEDS: Aspirin EC 81 mg TAB.EC (enteric coated) PO SCH (08:04)
[2021-04-16] MEDS: Multivitamins/Minerals TAB PO SCH (08:04)
[2021-04-16] MEDS: Mometasone/Formoter 200/5 MDI INH SCH (08:19)
[2021-04-16] MEDS: Lidocaine PATCH 5% PATCH TRANSDERM SCH ×2 (08:47)
[2021-04-16 11:59] VITALS: BP 120/48
== END 2021-04-16 16:14 | disposition swing bed (61) | DRG 177 ==
LOC: ED 11:25 → SSU 13:12 → MED 03-27 10:27
PROVIDERS: ADMIT Hospitalist; ATTEND Internal Medicine

== ENCOUNTER 2021-04-16 16:15 | Inpatient (IN) ==
[2021-04-16] MEDS ORDERED: Enoxaparin 40 MG/0.4 ML SYR SUBCUT SCH (17:00)
[2021-04-16] MEDS ORDERED: Albuterol/Ipratropium NEB.SOL (2.5/0.5 MG) 3 ML NEB.SOLN INH PRN (17:14)
[2021-04-16] MEDS ORDERED: Al Hydrox/Mg Hydrox/Simet LIQ 30 ML UDC PO PRN (17:15)
[2021-04-16] MEDS ORDERED: Lactulose 30 ml UDC PO PRN (17:15)
[2021-04-16] MEDS ORDERED: Magnesium Hydroxide LIQ 30 ML UDC PO PRN (17:16)
[2021-04-16] MEDS ORDERED: Nicotine GUM 2MG FRUIT FLAVOR PO PRN (17:16)
[2021-04-16] MEDS ORDERED: Albuterol HFA INHALER 8 gm MDI INH PRN (17:17)
[2021-04-16] MEDS ORDERED: Ondansetron 4 mg VIAL 2 MG/ML 2 ml VIAL IV PRN (17:17)
[2021-04-16] MEDS ORDERED: Levalbuterol 1.25MG/0.5ML NEB.SOL INH PRN (17:17)
[2021-04-16] MEDS: fentaNYL Patch Check Q Shift NOTE FOLLOW UP SCH (18:54)
[2021-04-16] MEDS: Mometasone/Formoter 200/5 MDI INH SCH (19:56)
[2021-04-16] MEDS ORDERED: Lidocaine Patch REMOVE PATCH PATCH OFF SCH (21:00)
[2021-04-16] MEDS ORDERED: Senna TAB 8.6 mg TAB PO SCH (21:00)
[2021-04-16] MEDS ORDERED: fentaNYL PATCH 25 MCG/HR 1 PATCH TRANSDERM SCH (21:00)
[2021-04-17] MEDS: fentaNYL Patch Check Q Shift NOTE FOLLOW UP SCH (06:57)
[2021-04-17 08:24] VITALS: BP 124/61
[2021-04-17] MEDS: Mometasone/Formoter 200/5 MDI INH SCH (08:35)
[2021-04-17] MEDS ORDERED: Aspirin EC 81 mg TAB.EC (enteric coated) PO SCH (09:00)
[2021-04-17] MEDS ORDERED: Multivitamins/Minerals TAB PO SCH (09:00)
[2021-04-17] MEDS ORDERED: Lidocaine PATCH 5% PATCH TRANSDERM SCH (09:00)
[2021-04-17] MEDS ORDERED: Polyethylene Glycol 3350 17 GM PACKET PO SCH (09:00)
[2021-04-17] MEDS ORDERED: HYDROmorphone 0.5 MG/0.5 ML SYRINGE IV SLOW PU ONE (10:03)
== END 2021-04-17 10:20 | DRG 563 ==
LOC: MED 16:15
PROVIDERS: ADMIT Internal Medicine; ATTEND Internal Medicine

== ENCOUNTER 2023-09-20 06:09 | Inpatient (IN) ==
[2023-09-20] MEDS ORDERED: Morphine 2 MG/ML SYRINGE IV ONE (06:37)
[2023-09-20] MEDS ORDERED: Ondansetron 4 mg VIAL 2 MG/ML 2 ml VIAL IV ONE (06:37)
[2023-09-20 07:11] LABS: ABS Lymphocytes 0.8 10^3/uL (1.0-4.8); ABS Monocytes 0.5 10^3/uL (0.0-1.1); ABS Neutrophils 9.8 10^3/uL (1.5-7.6); Hemoglobin 13.4 g/dL (13.2-16.3); Mean Corpuscular Hemoglobin 31.6 pg (27-33); Mean Corpuscular Hgb Conc 32.8 g/dL (31-36); Mean Corpuscular Volume 96.2 fL (80-97); Mean Platelet Volume 7.3 fL (7.5-11.2); Platelet Count 300 10^3/uL (150-450); Red Blood Count 4.26 10^6/uL (4.06-5.63); White Blood Count 11.1 10^3/uL (3.6-10.2)
[2023-09-20 07:24] LABS: INR 1.11 (0.83-1.13)
[2023-09-20 07:34] LABS: Urine Appearance Cloudy; Urine Bacteria Absent (Absent); Urine Bilirubin Negative (Negative); Urine Blood 1+ (Negative); Urine Color Yellow; Urine Glucose 3+(>=500 mg/dL) (Negative); Urine Ketones 1+ (Negative); Urine Nitrite Negative (Negative); Urine Protein 1+(30 mg/dL) (Negative); Urine Red Blood Cell 3+(>10/hpf) (Absent); Urine Urobilinogen Negative (Negative); Urine White Blood Cell 3+(>20/hpf) (Absent)
[2023-09-20 07:37] LABS: Urine Specific Gravity > 1.060 (1.002-1.030)
[2023-09-20 07:40] LABS: ALT 19 U/L (7-52); Albumin 3.1 g/dL (3.2-5.2); Albumin/Globulin Ratio 1.1 (1-3); Alkaline Phosphatase 84 U/L (35-149); Anion Gap 12 mmol/L (2-16); Blood Urea Nitrogen 12 mg/dL (6-24); C Reactive Protein 11.27 mg/L (<8.01); CO2 Carbon Dioxide 22 mmol/L (22-32); Calcium 8.6 mg/dL (8.6-10.3); Chloride 103 mmol/L (101-111); Creatinine, Serum 0.82 mg/dL (0.67-1.17); Globulin 2.9 g/dL (2-4); Glucose 103 mg/dL (70-100); Magnesium 1.8 mg/dL (1.9-2.7); Sodium 137 mmol/L (135-145); Total Bilirubin 0.3 mg/dL (0.2-1.0)
[2023-09-20] MEDS ORDERED: Magnesium Sulfate IV 1GM/100ML 1 GM/100 ML BAG IV ONE (07:40)
[2023-09-20 08:01] LABS: Lipase < 10 U/L (11.0-82.0)
[2023-09-20] MEDS ORDERED: Lactated Ringers 1000 ml BAG 1,000 ML IV ONE ×3 (08:17→09:53)
[2023-09-20] MEDS ORDERED: cefTRIAXone 1 gm/50 mL D5W 1 GM/50 ML BAG IV ONE (08:57)
[2023-09-20] MEDS ORDERED: diazePAM INJ CARPUJECT 5 MG/ML SYRINGE IV ONE (09:10)
[2023-09-20 09:48] LABS: Potassium Redraw 3.8 mmol/L (3.5-5.0)
[2023-09-20] MEDS ORDERED: Piperacillin/Tazobac 3.375 BAG 3.375 GM/100 ML BAG IV ONE ×2 (11:37→11:45)
[2023-09-20] MEDS ORDERED: Albuterol HFA INHALER 8 gm MDI INH PRN (11:55)
[2023-09-20] MEDS ORDERED: Zosyn per Pharmacy NOTE FOLLOW UP SCH (12:00)
[2023-09-20] MEDS ORDERED: Vancomycin 1,250 MG in NS 0.9% 250 ml 250 ML IVPB ONE (13:00)
[2023-09-20] MEDS ORDERED: Vancomycin per Pharmacy 1 EA NOTE FOLLOW UP PRN (14:29)
[2023-09-20] MEDS: ZOSYN 3.375 GM Q8H per EXTENDED INFUSION IV SCH (17:06)
[2023-09-20] MEDS: Enoxaparin 40 MG/0.4 ML SYR SUBCUT SCH (19:59)
[2023-09-20] MEDS ORDERED: Acetaminophen IV 1 GM/100ML 1,000 MG/100 ML BAG IV ONE (21:11)
[2023-09-21] MEDS: Vancomycin 750 MG in NS 0.9% 250 ML IVPB SCH ×2 (01:08→14:27)
[2023-09-21] MEDS: ZOSYN 3.375 GM Q8H per EXTENDED INFUSION IV SCH ×3 (02:51→18:29)
[2023-09-21 04:29] LABS: Hematocrit 36.2 % (38-53); Hemoglobin 11.9 g/dL (13.2-16.3); Mean Corpuscular Hemoglobin 32.1 pg (27-33); Mean Corpuscular Hgb Conc 32.9 g/dL (31-36); Mean Corpuscular Volume 97.7 fL (80-97); Mean Platelet Volume 7.2 fL (7.5-11.2); Platelet Count 256 10^3/uL (150-450); Red Cell Distribution Width 15.7 % (12-17); White Blood Count 8.4 10^3/uL (3.6-10.2)
[2023-09-21 04:53] LABS: Anion Gap 6 mmol/L (2-16); Blood Urea Nitrogen 9 mg/dL (6-24); CO2 Carbon Dioxide 22 mmol/L (22-32); Calcium 7.8 mg/dL (8.6-10.3); Chloride 109 mmol/L (101-111); Creatinine, Serum 0.61 mg/dL (0.67-1.17); Glucose 93 mg/dL (70-100); Sodium 137 mmol/L (135-145); eGFR CKD-EPI 99.5 (>60)
[2023-09-21] MEDS ORDERED: Morphine 4 MG/ML VIAL (1 ml) IV ONE (05:04)
[2023-09-21] MEDS ORDERED: Acetaminophen IV 1 GM/100ML 1,000 MG/100 ML BAG IV ONE (05:12)
[2023-09-21] MEDS ORDERED: Senna TAB 8.6 mg TAB PO PRN (07:00)
[2023-09-21] MEDS: FLUTICAS/UMECLI/VILANT 100-62.5-25 MDI (NF) INH SCH (07:51)
[2023-09-21] MEDS: Polyethylene Glycol 3350 17 GM PACKET PO SCH ×2 (08:55→21:27)
[2023-09-21] MEDS: Senna TAB 8.6 mg TAB PO SCH (08:55)
[2023-09-21] MEDS: Enoxaparin 40 MG/0.4 ML SYR SUBCUT SCH (21:28)
[2023-09-22] MEDS: Acetaminop/Codeine 300mg/30mg TAB PO PRN ×3 (01:10→21:08)
[2023-09-22] MEDS: Vancomycin 750 MG in NS 0.9% 250 ML IVPB SCH (01:20)
[2023-09-22] MEDS: ZOSYN 3.375 GM Q8H per EXTENDED INFUSION IV SCH (04:08)
[2023-09-22 06:07] LABS: Hematocrit 34.1 % (38-53); Hemoglobin 11.3 g/dL (13.2-16.3); Mean Corpuscular Hgb Conc 33.1 g/dL (31-36); Mean Corpuscular Volume 96.5 fL (80-97); Mean Platelet Volume 7.7 fL (7.5-11.2); Platelet Count 209 10^3/uL (150-450); Red Blood Count 3.53 10^6/uL (4.06-5.63); Red Cell Distribution Width 15.9 % (12-17); White Blood Count 7.6 10^3/uL (3.6-10.2)
[2023-09-22 06:25] LABS: Calcium 7.9 mg/dL (8.6-10.3); Creatinine, Serum 0.45 mg/dL (0.67-1.17); Magnesium 1.7 mg/dL (1.9-2.7); Potassium 3.6 mmol/L (3.5-5.0); eGFR CKD-EPI 109.1 (>60)
[2023-09-22] MEDS: FLUTICAS/UMECLI/VILANT 100-62.5-25 MDI (NF) INH SCH (07:14)
[2023-09-22] MEDS ORDERED: Magnesium Sulfate 2 gm BAG 2 GM/50 ML BAG IVPB ONE (10:00)
[2023-09-22] MEDS: Senna TAB 8.6 mg TAB PO SCH (10:01)
[2023-09-22] MEDS: Polyethylene Glycol 3350 17 GM PACKET PO SCH ×2 (10:57→20:36)
[2023-09-22] MEDS: cefTRIAXone 1 gm/50 mL D5W 1 GM/50 ML BAG IV SCH (11:04)
[2023-09-22] MEDS ORDERED: Magnesium Sulfate IV 1GM/100ML 1 GM/100 ML BAG IV ONE (12:00)
[2023-09-22] MEDS ORDERED: Vancomycin Trough Check NOTE FOLLOW UP ONE (13:30)
[2023-09-22] MEDS ORDERED: Iodixanol (CONTRAST) 320 MG/ML 100 ML SDV IV ONE (13:41)
[2023-09-22 15:27] LABS: Ferritin 34.6 ng/mL (24-336)
[2023-09-22] MEDS: Enoxaparin 40 MG/0.4 ML SYR SUBCUT SCH (21:08)
[2023-09-23] MEDS: HYDROcodone/ACET. 7.5/325 LIQ 15 ML UDC PO PRN ×2 (00:01→16:54)
[2023-09-23] MEDS: FLUTICAS/UMECLI/VILANT 100-62.5-25 MDI (NF) INH SCH (07:43)
[2023-09-23 07:49] LABS: ABS Basophils 0.1 10^3/uL (0.0-0.1); ABS Eosinophils 0.4 10^3/uL (0.0-0.5); ABS Lymphocytes 1.3 10^3/uL (1.0-4.8); ABS Monocytes 0.8 10^3/uL (0.0-1.1); ABS Neutrophils 5.3 10^3/uL (1.5-7.6); ABS Nucleated RBC 0.01 10^3/ul; Eosinophil % 4.8 %; Hematocrit 34.8 % (38-53); Hemoglobin 11.4 g/dL (13.2-16.3); Lymphocyte % 16.9 %; Mean Corpuscular Hemoglobin 31.8 pg (27-33); Mean Corpuscular Hgb Conc 32.8 g/dL (31-36); Mean Corpuscular Volume 96.9 fL (80-97); Nucleated Red Blood Cells % 0.1 %/100WBC (0.0-0.8); Platelet Count 227 10^3/uL (150-450); Red Blood Count 3.59 10^6/uL (4.06-5.63); Red Cell Distribution Width 15.7 % (12-17); White Blood Count 7.8 10^3/uL (3.6-10.2)
[2023-09-23 08:19] LABS: Calcium 7.8 mg/dL (8.6-10.3); Creatinine, Serum 0.4 mg/dL (0.67-1.17); Potassium 3.8 mmol/L (3.5-5.0); eGFR CKD-EPI 113.1 (>60)
[2023-09-23] MEDS ORDERED: Furosemide 40 mg/4 ml IV VIAL IV ONE (08:38)
[2023-09-23] MEDS: Senna TAB 8.6 mg TAB PO SCH (09:15)
[2023-09-23] MEDS: cefTRIAXone 1 gm/50 mL D5W 1 GM/50 ML BAG IV SCH (09:16)
[2023-09-23] MEDS: Polyethylene Glycol 3350 17 GM PACKET PO SCH ×2 (09:16→19:29)
[2023-09-23] MEDS: Ferric Gluconate IV 250 MG in NS 0.9% 250 ml 200 ML IVPB SCH (10:55)
[2023-09-23] MEDS ORDERED: Sulfur Hexaflouride MICROSPHR 25 MG VIAL ONE (14:57)
[2023-09-23] MEDS: Enoxaparin 40 MG/0.4 ML SYR SUBCUT SCH (19:28)
[2023-09-23] MEDS: Acetaminop/Codeine 300mg/30mg TAB PO PRN (19:29)
[2023-09-24] MEDS: HYDROcodone/ACET. 7.5/325 LIQ 15 ML UDC PO PRN ×2 (00:59→08:18)
[2023-09-24] MEDS: FLUTICAS/UMECLI/VILANT 100-62.5-25 MDI (NF) INH SCH (07:24)
[2023-09-24] MEDS ORDERED: Furosemide 20 mg/2 ml IV VIAL IV ONE (08:12)
[2023-09-24] MEDS: Senna TAB 8.6 mg TAB PO SCH (08:19)
[2023-09-24] MEDS: Polyethylene Glycol 3350 17 GM PACKET PO SCH (08:20)
[2023-09-24 08:50] LABS: ABS Basophils 0.1 10^3/uL (0.0-0.1); ABS Eosinophils 0.6 10^3/uL (0.0-0.5); ABS Lymphocytes 1.4 10^3/uL (1.0-4.8); ABS Monocytes 0.8 10^3/uL (0.0-1.1); ABS Neutrophils 5.2 10^3/uL (1.5-7.6); ABS Nucleated RBC 0.01 10^3/ul; Eosinophil % 7.4 %; Hematocrit 40.7 % (38-53); Hemoglobin 13.4 g/dL (13.2-16.3); Lymphocyte % 17.5 %; Mean Corpuscular Hemoglobin 31.9 pg (27-33); Mean Corpuscular Hgb Conc 32.9 g/dL (31-36); Mean Corpuscular Volume 96.9 fL (80-97); Mean Platelet Volume 8.1 fL (7.5-11.2); Nucleated Red Blood Cells % 0.1 %/100WBC (0.0-0.8); Platelet Count 231 10^3/uL (150-450); Red Cell Distribution Width 15.8 % (12-17); White Blood Count 8.1 10^3/uL (3.6-10.2)
[2023-09-24 09:10] LABS: Anion Gap 8 mmol/L (2-16); Blood Urea Nitrogen 5 mg/dL (6-24); CO2 Carbon Dioxide 23 mmol/L (22-32); Calcium 7.6 mg/dL (8.6-10.3); Chloride 104 mmol/L (101-111); Creatinine, Serum 0.44 mg/dL (0.67-1.17); Glucose 71 mg/dL (70-100); Sodium 135 mmol/L (135-145); eGFR CKD-EPI 109.9 (>60)
[2023-09-24 10:10] VITALS: BP 93/59
[2023-09-24] MEDS: cefTRIAXone 1 gm/50 mL D5W 1 GM/50 ML BAG IV SCH (10:20)
[2023-09-24] MEDS: Ferric Gluconate IV 250 MG in NS 0.9% 250 ml 200 ML IVPB SCH (10:47)
[2023-09-24 11:07] LABS: Magnesium 1.8 mg/dL (1.9-2.7); Potassium Redraw 3.4 mmol/L (3.5-5.0)
[2023-09-24] MEDS ORDERED: Magnesium Sulfate 2 gm BAG 2 GM/50 ML BAG IVPB ONE (11:09)
[2023-09-24] MEDS ORDERED: Magnesium Sulfate IV 1GM/100ML 1 GM/100 ML BAG IV ONE (13:09)
[2023-09-24] MEDS: Acetaminop/Codeine 300mg/30mg TAB PO PRN (14:17)
== END 2023-09-24 14:45 | disposition home or self-care (01) | DRG 871 ==
LOC: ED 06:09 → SUATTDRO 11:33 → EDHOLD 11:33 → ICU 13:06 → MED 09-21 07:59
PROVIDERS: ADMIT Internal Medicine Pulmonary Disease; ATTEND Student in an Organized Health Care Education/Training Program